=== PATIENT | female | born 1990 | race Caucasian/White ===

== ENCOUNTER 2017-02-10 21:19 | Emergency (ER) | payer OTHER ==
[~2017-02-10] VITALS: Ht 172.7 cm; Wt 99.8 kg
--- NOTE | 2017-02-10 22:30 | ED General ---
General Chief Complaint: Cough/Cold/Flu Symptoms Stated Complaint: WEAKNESS,DIZZINESS Nursing Triage Note: PT AMBULATORY TO ROOM, STATES SHE HAS BEEN SICK WITH COUGH ADN SORE THROAT SINCE AND HAS BEEN SEEN IN [place] X4. WAS IN CLASS TONIGHT AND GOT DIZZY, DECIDED TO COME TO ED INSTEAD OF DRIVING HOME TO [place]. Nursing Sepsis Screen: No Definite Risk Source of Information: Patient History of Present Illness Time Seen by Provider: 21:55 Initial Comments PT ARRIVES VIA POV PT STATES SHE HAS BEEN SICK SINCE MID , WITH MULTITUDE OF COMPLAINTS STATES SYMPTOMS ARE DIFFERENT ALL THE TIME PT STATES SHE HAS BEEN SICK NEARLY EVERY DAY, WITH VERY FEW DAYS WHEN SHE IS NOT SICK HAS HAD FEVER 100-102+ OFF AND ON= WAS 100.6 YESTERDAY HAS HAD NASAL CONGESTION AND COLORED DRAINAGE--WAS BETTER A FEW DAYS LAST WEEK, THEN RETURNED AGAIN YESTERDAY HAS HAD A NON-PRODUCTIVE COUGH OFF AND ON, HAD SLIGHT SHORTNESS OF BREATH YESTERDAY C/O NAUSEA, AND NO APPETITE C/O NO ENERGY C/O SORE THROAT OFF AND ON LAST WEEK HER HANDS WERE SWOLLEN C/O URINARY FREQUENCY, NO BURNING ON URINATION PT WORKS A SCHOOL COUNSELOR, PLUS WORKS NIGHTS AND WEEKENDS AT [employer] PT LIVES IN [place], BUT IS TAKING CLASSES HERE IN [place], AND WAS SITTING IN CLASS TONIGHT AND BEGAN FEELING VERY DIZZY AND FELT LIKE SHE WAS GOING TO PASS OUT, SO SHE DROVE HERSELF TO ER, BECAUSE SHE WAS AFRAID TO DRIVE HOME TO [place]. PT STATES SHE HAS BEEN SEEN AT LEAST 3 TIMES AT THE NOW CLINIC IN [place] FOR THESE COMPLAINTS--HAD STREP TEST DONE A FEW WEEKS AGO AND WAS NEGATIVE. NO OTHER TESTS HAVE BEEN DONE. WAS LAST SEEN THERE 01/31/17 AND WAS GIVEN A SHOT OF STEROIDS AND GIVEN RX FOR UNKNOWN ANTIBIOTIC AND AN UNKNOWN COUGH MEDICATION. OTHERWISE HAS NOT BEEN PRESCRIBED ANY MEDICATION. OCCASIONALLY SHE HAS TAKEN OTC VITAMIN C AND CLARITIN WITHOUT SIGNIFICANT IMPROVEMENT PCP: [facility] IN [place], BUT NEVER GOES THERE EXCEPT ONCE A YEAR FOR ANNUAL EXAM. AND HAS NOT ATTEMPTED TO SEE HIM AT ANY TIME FOR THESE SYMPTOMS. PCP: DR. FAJARDO, JANNY Allergies and Home Medications Allergies Coded Allergies: oxycodone (Verified Allergy, Mild, 02/10/17) Home Medications Amoxicillin/Potassium Clav 1 Each Tablet, 1 EACH PO BID, #40 Prescribed by: TANVIR VIDES on 02/10/172327 Loratadine/Pseudoephedrine 1 Each Tab.er.12h, 1 EACH PO BID, #30 Prescribed by: TANVIR VIDES on 02/10/172327 Methylprednisolone 4 Mg Tab.ds.pk, 4 MG PO UD, #1 Prescribed by: TANVIR VIDES on 02/10/172327 Mometasone Furoate 17 Gm Naspr, 2 SPRAYS NSEACH BID, #1 Prescribed by: TANVIR VIDES on 02/10/172327 Constitutional: see HPI, dizziness, fever, malaise, weakness EENTM: see HPI, nose congestion, throat pain Respiratory: see HPI, cough, short of breath Cardiovascular: see HPI, No chest pain, edema, No palpitations, No syncope, No vascular heart diseas Gastrointestinal: see HPI, No abdominal pain, No diarrhea, loss of appetite, nausea, No vomiting Genitourinary: see HPI, No dysuria, frequency, No hematuria, No incontinence, No nocturia, No pain : No LMP: Jan 25, 2017 Musculoskeletal: see HPI, other (HAND SWELLING) Skin: no symptoms reported, No rash Psychiatric/Neurological: No Symptoms Reported, Denies Headache, Denies Numbness, Denies Paresthesia, Denies Seizure, Denies Tingling, Denies Tremors, Denies Weakness Hematologic/Lymphatic: No Symptoms Reported Immunological/Allergic: no symptoms reported Past Zcryobw-Vmfkaz-Yxtmpp Hx Patient Social History Alcohol Use: Denies Use Recreational Drug Use: No Smoking Status: Never a Smoker Recent Foreign Travel: No Contact w/Someone Who Travel: No Recent Infectious Disease Expo: No Physical Abuse: No Sexual Abuse: No Surgeries History of Surgeries: No Respiratory History of Respiratory Disorde: No Cardiovascular History of Cardiac Disorders: No Neurological History of Neurological Disord: No Reproductive System : No Female Reproductive Disorders: Denies Genitourinary History of Genitourinary Disor: No Gastrointestinal History of Gastrointestinal Di: No Musculoskeletal History of Musculoskeletal Dis: No Endocrine History of Endocrine Disorders: No HEENT History of HEENT Disorders: No Cancer History of Cancer: No Psychosocial History of Psychiatric Problem: No Suicide Risk Score: 0 Integumentary History of Skin or Integumenta: No Blood Transfusions History of Blood Disorders: No Physical Exam Vital Signs Vital Sign - Last 12Hours 02/10/17 21:48 Temp 98.7 Pulse 114 Resp 17 B/P (MAP) 134/ Pulse Ox 100 O2 Delivery Room Air Capillary Refill : Less Than 3 Seconds General Appearance: No Apparent Distress, Obese, Other (FLAT AFFECT) HEENT: PERRL/EOMI, TMs Normal, Other (NASAL MUCOSAL EDEMA, LARGE AMOUNT OF COLORED NASAL DRAINAGE, MILD MAX SINUS TENDERNESS. MILD PHARYNGEAL ERYTHEMA. NO EXUDATE OR TONSILLAR SWELLING) Neck: Full Range of Motion, Normal Inspection, Non Tender, Supple, No Lymphadenopathy (L), No Lymphadenopathy (R) Respiratory: Normal Breath Sounds, No Accessory Muscle Use, No Respiratory Distress Cardiovascular: Regular Rate, Rhythm, No Edema, No JVD, No Murmur, Normal Peripheral Pulses Gastrointestinal: Normal Bowel Sounds, No Organomegaly, No Pulsatile Mass, Non Tender, Soft Back: Normal Inspection, No CVA Tenderness Extremity: Normal Capillary Refill, Normal Inspection, Normal Range of Motion, Non Tender, No Calf Tenderness, No Pedal Edema Neurologic/Psychiatric: Alert, Oriented x3, No Motor/Sensory Deficits, 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 Norm as Tested Skin: Normal Color, Warm/Dry, No Rash Focused Exam Evaluation Lactate Level Laboratory Tests 02/10/17 22:19: Lactic Acid Level 0.84 Lactic Acid Level Progress/Results/Core Measures Results/Orders Lab Results Laboratory Tests Test 02/10/17 22:10 02/10/17 22:15 02/10/17 22:19 Range/Units Urine Color YELLOW Urine Clarity CLEAR Urine pH 6.5 5-9 Urine Specific [place] 1.010 L 1.016-1.022 Urine Protein NEGATIVE NEGATIVE Urine Glucose (UA) NEGATIVE NEGATIVE Urine Ketones NEGATIVE NEGATIVE Urine Nitrite NEGATIVE NEGATIVE Urine Bilirubin NEGATIVE NEGATIVE Urine Urobilinogen NORMAL NORMAL MG/DL Urine Leukocyte Esterase NEGATIVE NEGATIVE Urine RBC (Auto) 1+ H NEGATIVE Urine RBC 0-2 /HPF Urine WBC NONE /HPF Urine Squamous Epithelial Cells RARE /HPF Urine Crystals NONE /LPF Urine Bacteria NONE /HPF Urine Casts NONE /LPF Urine Mucus NEGATIVE /LPF Urine Culture Indicated NO Group A Streptococcus Screen NEGATIVE NEGATIVE White Blood Count 12.5 H 4.3-11.0 10^3/uL Red Blood Count 5.06 4.35-5.85 10^6/uL Hemoglobin 14.1 11.5-16.0 G/DL Hematocrit 41 35-52 % Mean Corpuscular Volume 81 80-99 FL Mean Corpuscular Hemoglobin 28 25-34 PG Mean Corpuscular Hemoglobin Concent 35 32-36 G/DL Red Cell Distribution Width 13.9 10.0-14.5 % Platelet Count 398 130-400 10^3/uL Mean Platelet Volume 9.4 7.4-10.4 FL Neutrophils (%) (Auto) 64 42-75 % Lymphocytes (%) (Auto) 22 12-44 % Monocytes (%) (Auto) 12 0-12 % Eosinophils (%) (Auto) 2 0-10 % Basophils (%) (Auto) 1 0-10 % Neutrophils # (Auto) 8.0 H 1.8-7.8 X 10^3 Lymphocytes # (Auto) 2.7 1.0-4.0 X 10^3 Monocytes # (Auto) 1.5 H 0.0-1.0 X 10^3 Eosinophils # (Auto) 0.2 0.0-0.3 10^3/uL Basophils # (Auto) 0.1 0.0-0.1 10^3/uL Sodium Level 137 135-145 MMOL/L Potassium Level 3.6 3.6-5.0 MMOL/L Chloride Level 105 98-107 MMOL/L Carbon Dioxide Level 22 21-32 MMOL/L Anion Gap 10 5-14 MMOL/L Blood Urea Nitrogen 9 7-18 MG/DL Creatinine 0.82 0.60-1.30 MG/DL Estimat Glomerular Filtration Rate > 60 BUN/Creatinine Ratio 11 Glucose Level 94 70-105 MG/DL Lactic Acid Level 0.84 0.50-2.00 MMOL/L Calcium Level 11.0 H 8.5-10.1 MG/DL Total Bilirubin 0.3 0.1-1.0 MG/DL Aspartate Amino Transf (AST/SGOT) 15 5-34 U/L Alanine Aminotransferase (ALT/SGPT) 18 0-55 U/L Alkaline Phosphatase 76 40-136 U/L Total Protein 8.7 H 6.4-8.2 GM/DL Albumin 4.4 3.2-4.5 GM/DL Monoscreen NEGATIVE NEGATIVE Micro Results Microbiology 02/10/17 Influenza Types A,B Antigen (ZAKIA) - Final, Resulted 02/10/17 Respiratory Syncytial Virus Ag, Resulted Pending My Orders Orders - MAHOGANY,TANVIR K DO Saline Lock/Iv-Start (02/10/17 22:08) Urine Bedside (02/10/17 22:08) Cbc With Automated Diff (02/10/17 22:08) Comprehensive Metabolic Panel (02/10/17 22:08) Lactic Acid Analyzer (02/10/17 22:08) Monotest (02/10/17 22:08) Rapid Strep A Screen (02/10/17 22:08) Ua Culture If Indicated (02/10/17 22:08) Blood Culture (02/10/17 22:08) Influenza A And B Antigens (02/10/17 22:08) Rsv Antigen (02/10/17 22:08) Chest Pa/Lat (2 View) (02/10/17 22:08) Ct Head Wo (02/10/17 22:08) Ceftriaxone Injection (Rocephin Injectio (02/10/17 23:30) Medications Given in ED Current Medications Medications Dose Ordered Sig/Marquita Route Start Time Stop Time Status Last Admin Dose Admin Ceftriaxone Sodium 1000 mg/ Sodium Chloride 50 ml @ 100 mls/hr ONCE ONCE IV 02/10/17 23:30 02/10/17 23:59 DC 02/10/17 23:34 100 MLS/HR Vital Signs/I&O Vital Sign - Last 12Hours 02/10/17 02/10/17 02/11/17 21:48 23:45 00:09 Temp 98.7 98.5 98.5 Pulse 114 99 87 Resp B/P (MAP) 134/ 139/97 Pulse Ox 100 98 100 O2 Delivery Room Air Diagnostic Imaging Comments CT HEAD--NO ACUTE PROCESS, PER [facility] VIA FAX @ 4107 Reviewed: Reviewed by Me Departure Impression Impression: Primary Impression: Upper respiratory infection Disposition: HOME, SELF-CARE Condition: Stable Departure-Patient Inst. Referrals: NO,LOCAL PHYSICIAN (PCP) Primary Care Physician Patient Instructions: Sinusitis, Adult (DC) Add. Discharge Instructions: LOTS OF CLEAR LIQUIDS TYLENOL AND MOTRIN NEEDED FOR PAIN OR FEVER FOLLOW UP WITH DR. FAJARDO IN 7-10 DAYS FOR FURTHER CARE All discharge instructions reviewed with patient and/or family. Voiced understanding. Scripts Mometasone Furoate (Nasonex) 17 Gm Naspr 2 SPRAYS NSEACH BID for SINUSES, #1 EA Prov: TANVIR VIDES DO 02/10/17 Methylprednisolone (Medrol) 4 Mg Tab.ds.pk 4 MG PO UD, #1 PKG Prov: TANVIR VIDES DO 02/10/17 Loratadine/Pseudoephedrine (Claritin-D 12 Hour Tablet) 1 Each Tab.er.12h 1 EACH PO BID for Congestion, #30 TAB Prov: TANVIR VIDES DO 02/10/17 Amoxicillin/Potassium Clav (Augmentin 875-125 Tablet) 1 Each Tablet 1 EACH PO BID for INFECTION, #40 TAB Prov: TANVIR VIDES DO 02/10/17 TANVIR VIDES DO Feb 10, 2017 22:30
[2017-02-10 22:32] LABS: BASOPHILS # (AUTO) 0.1 10^3/uL (0.0-0.1); BASOPHILS % (AUTO) 1 % (0-10); EOSINOPHILS # (AUTO) 0.2 10^3/uL (0.0-0.3); EOSINOPHILS % (AUTO) 2 % (0-10); LYMPHOCYTES # (AUTO) 2.7 X 10^3 (1.0-4.0); LYMPHOCYTES % (AUTO) 22 % (12-44); MEAN CORPUSCULAR HEMOGLOBIN 28 PG (25-34); MEAN CORPUSCULAR HGB CONC 35 G/DL (32-36); MEAN CORPUSCULAR VOLUME 81 FL (80-99); MEAN PLATELET VOLUME 9.4 FL (7.4-10.4); MONOCYTES # (AUTO) 1.5 X 10^3 (0.0-1.0); MONOCYTES % (AUTO) 12 % (0-12); NEUTROPHILS % (AUTO) 64 % (42-75); PLATELET COUNT 398 10^3/uL (130-400); RED BLOOD COUNT 5.06 10^6/uL (4.35-5.85); RED CELL DISTRIBUTION WIDTH 13.9 % (10.0-14.5); WHITE BLOOD COUNT 12.5 10^3/uL (4.3-11.0)
[2017-02-10 22:39] LABS: BILIRUBIN,URINE NEGATIVE (NEGATIVE); KETONES,URINE NEGATIVE (NEGATIVE); LEUKOCYTE ESTERASE ,URINE NEGATIVE (NEGATIVE); NITRITE,URINE NEGATIVE (NEGATIVE); PH,URINE 6.5 (5-9); PROTEIN,URINE NEGATIVE (NEGATIVE); UROBILINOGEN,URINE NORMAL (NORMAL)
[2017-02-10 22:46] LABS: SQUAMOUS EPITHELIAL CELL,UR RARE /HPF
[2017-02-10 22:55] LABS: ALANINE AMINOTRANSFERASE 18 U/L (0-55); ALBUMIN 4.4 GM/DL (3.2-4.5); ANION GAP 10 MMOL/L (5-14); ASPARTATE AMINO TRANSFERASE 15 U/L (5-34); BILIRUBIN,TOTAL 0.3 MG/DL (0.1-1.0); BLOOD UREA NITROGEN 9 MG/DL (7-18); BUN/CREATININE RATIO 11; CARBON DIOXIDE 22 MMOL/L (21-32); CHLORIDE 105 MMOL/L (98-107); CREATININE SERUM 0.82 MG/DL (0.60-1.30); GFR ESTIMATED > 60; GLUCOSE 94 MG/DL (70-105); POTASSIUM 3.6 MMOL/L (3.6-5.0); SODIUM 137 MMOL/L (135-145); TOTAL PROTEIN 8.7 GM/DL (6.4-8.2)
[2017-02-10] MEDS ORDERED: MMT17NA NSEACH (23:28)
[2017-02-10] MEDS ORDERED: AMOX-358 PO (23:28)
[2017-02-10] MEDS ORDERED: METH4TAB PO (23:28)
[2017-02-10] MEDS ORDERED: LORA1TAB59 PO (23:28)
[2017-02-10] MEDS ORDERED: cefTRIAXone INJECTION 1,000 MG in NS (IVPB) 50 ML IV ONE (23:30)
[2017-02-11 00:09] VITALS: BP 123/84
--- NOTE | 2017-02-11 06:08 | Diagnostic Imaging Report ---
EXAM: CHEST PA/LAT (2 VIEW) INDICATION: Cough. Dizziness. COMPARISON: None. FINDINGS: Normal heart size and pulmonary vascularity. No focal pulmonary opacity, pleural effusion or pneumothorax. No acute osseous findings. IMPRESSION: No acute cardiopulmonary findings. Dictated by: Dictated on workstation # [id number]
--- NOTE | 2017-02-11 06:08 | Diagnostic Imaging Report ---
PROCEDURE: CT head without contrast. TECHNIQUE: Multiple contiguous axial images were obtained through the brain without the use of intravenous contrast. INDICATION: Dizziness. COMPARISON: None. FINDINGS: No intracranial hemorrhage, mass effect, hydrocephalus or extra-axial fluid collections. No CT evidence of acute infarction. Osseous structures are intact. The paranasal sinuses and mastoids are clear. IMPRESSION: No acute intracranial CT findings. Dictated by: Dictated on workstation # [id number]
== END 2017-02-11 00:09 | disposition home or self-care (01) ==
LOC: ER 21:22
DX: J06.9 Acute upper respiratory infection, unspecified (principal)
CPT/HCPCS: 36415; 70450; 71020; 80053; 81000; 83605; 84703; 85025; 86308; 87040; 87420; 87430; 87804

== ENCOUNTER 2019-09-20 12:32 | Emergency (ER) | payer BC, OTHER ==
[~2019-09-20] VITALS: Ht 175.3 cm; Wt 99.8 kg
[~2019-09-20 12:32] MED LIST: AMOX-358 PO; LORA1TAB59 PO; METH4TAB PO; MMT17NA NSEACH
--- NOTE | 2019-09-20 12:47 | ED Upper Extremity ---
General Stated Complaint: LEFT ARM INJ Source: patient Exam Limitations: no limitations History of Present Illness Date Seen by Provider: Sep 20, 2019 Time Seen by Provider: 12:45 Initial Comments To ER with pain to the ulnar side mid forearm on the left after striking this area on the corner of a step and fell at home just prior to arrival Onset: just prior to arrival Severity: moderate Pain/Injury Location: left forearm Method of Injury: fell Modifying Factors: Worse With Movement Allergies and Home Medications Allergies Coded Allergies: oxycodone (Verified Allergy, Mild, 02/10/17) Home Medications Amoxicillin/Potassium Clav 1 Each Tablet, 1 EACH PO BID Prescribed by: TANVIR VIDES on 02/10/172327 Loratadine/Pseudoephedrine 1 Each Tab.er.12h, 1 EACH PO BID Prescribed by: TANVIR VIDES on 02/10/172327 Methylprednisolone 4 Mg Tab.ds.pk, 4 MG PO UD Prescribed by: TANVIR VIDES on 02/10/172327 Mometasone Furoate 17 Gm Naspr, 2 SPRAYS NSEACH BID Prescribed by: TANVIR VIDES on 02/10/172327 Patient Home Medication List Home Medication List Reviewed: Yes Review of Systems Constitutional: see HPI EENTM: see HPI Respiratory: no symptoms reported Cardiovascular: no symptoms reported Genitourinary: no symptoms reported Musculoskeletal: see HPI Skin: no symptoms reported Psychiatric/Neurological: No Symptoms Reported Past Wsyeudh-Esgtik-Uzdotb Hx Patient Social History Recent Foreign Travel: No Contact w/Someone Who Travel: No Past Medical History Surgeries: No Respiratory: No Cardiac: No Neurological: No Female Reproductive Disorders: Denies Genitourinary: No Gastrointestinal: No Musculoskeletal: No Endocrine: No HEENT: No Cancer: No Psychosocial: No Integumentary: No Blood Disorders: No Physical Exam Vital Signs Vital Signs - First Documented 09/20/19 12:52 Temp 36.9 Pulse 80 Resp 20 B/P (MAP) 141/97 (112) O2 Delivery Room Air Capillary Refill : Height, Weight, BMI Height: 5'8.00" Weight: 220lbs. oz. 99.562326xr; BMI Method:Stated General Appearance: WD/WN, no apparent distress HEENT: PERRL/EOMI, normal ENT inspection Respiratory: no respiratory distress, no accessory muscle use Shoulder: normal inspection, non-tender Elbow/Forearm: Left, abrasions (ulnar side midforearm) Wrist: Yes normal inspection, Yes non-tender Hand: normal inspection, non-tender Neurologic/Psychiatric: alert, normal mood/affect, oriented x 3 Skin: normal color, warm/dry Progress/Results/Core Measures Results/Orders My Orders Orders - SOPHIE SUMNER APRN Forearm, Left, 2 Views (09/20/19 12:44) Vital Signs/I&O 09/20/19 12:52 Temp 36.9 Pulse 80 Resp 20 B/P (MAP) 141/97 (112) O2 Delivery Room Air Departure Impression Primary Impression: Contusion of forearm, left Disposition: HOME, SELF-CARE Condition: Stable Departure-Patient Inst. Decision time for Depature: 13:04 Referrals: NO,LOCAL PHYSICIAN (PCP/Family) Primary Care Physician Patient Instructions: Contusion (DC) Add. Discharge Instructions: 1. Ice pack to the area. Tylenol and ibuprofen for pain control 2. Follow-up with your doctor next week 3. Images Extremities-Upper 1 - Abrasion, Tenderness SOPHIE SUMNRE APRN Sep 20, 2019 12:47
[2019-09-20 12:52] VITALS: BP 141/97
--- NOTE | 2019-09-20 13:09 | Diagnostic Imaging Report ---
INDICATION: Fall with left forearm injury and pain. TIME OF EXAM: 10:02 PM 2 views of left forearm demonstrate normal alignment at the elbow and wrist. The radius and ulna appear to be intact. No fractures are seen. Soft tissues are unremarkable. IMPRESSION: No acute abnormality is detected. Dictated by: Dictated on workstation # [id number]
--- OUTSIDE RECORDS SUMMARY | 2019-09-20 13:47 | XMS REPORT | Continuity of Care Document ---
Author Organization Unknown Address Unknown Phone Unavailable Allergies Active Description Code Type Severity Reaction Onset Reported/Identified Relationship to Patient Clinical Status Yes oxycodone [id number] Drug Allergy Mild N/A 02/10/2017 Medications There is no data. Problems Date Dx Coded Attending Type Code Diagnosis Diagnosed By 02/11/2017 TANVIR VIDES DO Ot J02.9 ACUTE PHARYNGITIS, UNSPECIFIED 02/11/2017 TANVIR VIDES DO Ot J06.9 ACUTE UPPER RESPIRATORY INFECTION, UNSPE Procedures There is no data. Results Test Result Range Complete urinalysis with reflex to cultu re - 02/10/17 22:10 Urine color determination YELLOW NRG Urine clarity determination CLEAR NR G Urine pH measurement by test strip 6.5 5-9 Specific gravity of urine by test strip 1.010 1.016-1.022 Urine protein assay by test strip, semi-quantitative NEGATIVE NEGATIVE Urine glucose detection by automated test strip NE GATIVE NEGATIVE Erythrocytes detection in urine sediment by light micr oscopy 1+ NEGATIVE Urine ketones detection by automated test strip NE GATIVE NEGATIVE Urine nitrite detection by test strip NEGATIVE NEGATIVE Urine total bilirubin detection by test strip NEGA TIVE NEGATIVE Urine urobilinogen measurement by automated test strip (mass/volume) NORMAL NORMAL Urine leukocyte esterase detection by dipstick NEG ATIVE NEGATIVE Automated urine sediment erythrocyte cou nt by microscopy (number/high power field) [HPF] NRG Automated urine sediment leukocyte count by microscopy (number/high power field) NONE NRG Bacteria detection in urine sediment by light microsco py NONE NRG Squamous epithelial cells detection in u rine sediment by light microscopy RARE NRG Crystals detection in urine sediment by light microsco py NONE NRG Casts detection in urine sediment by light microscopy NONE NRG Mucus detection in urine sediment by light microscopy NEGATIVE NRG Complete urinalysis with reflex to culture NO NRG Streptococcus pyogenes antigen detection - 02/10/17 22:15 Streptococcus pyogenes antigen detection NEGATIVE NEGATIVE Influenza virus A and B antigen detectio n - 02/10/17 22:15 FLU RESULT NEGATIVE FOR INFLUENZA A AND B ANTIGENS BY [facility] Bacterial throat culture - 02/10/17 22:1 5 Complete blood count (CBC) with automate d white blood cell (WBC) differential - 02/10/17 22:19 Blood leukocytes automated count (number/volume) 12.5 10*3/uL 4.3-11.0 Blood erythrocytes automated count (number/volume) 5.06 10*6/uL 4.35-5.85 Venous blood hemoglobin measurement (mass/volume) 14.1 g/dL 11.5-16.0 Blood hematocrit (volume fraction) 41 % 35-52 Automated erythrocyte mean corpuscular volume 81 [ foz_us] 80-99 Automated erythrocyte mean corpuscular h emoglobin (mass per erythrocyte) 28 pg 25-34 Automated erythrocyte mean corpuscular h emoglobin concentration measurement (mass/volume) 35 g/dL 32-36 Automated erythrocyte distribution width ratio 13. 9 % 10.0- 14.5 Automated blood platelet count (count/volume) 398 10*3/uL 130-400 Automated blood platelet mean volume measurement 9.4 [foz_us] 7.4-10.4 Automated blood neutrophils/100 leukocytes 64 % 42-75 Automated blood lymphocytes/100 leukocytes 22 % 12-44 Blood monocytes/100 leukocytes 12 % 0-12 Automated blood eosinophils/100 leukocytes 2 % 0-10 Automated blood basophils/100 leukocytes 1 % 0-10 Blood neutrophils automated count (number/volume) 8.0 10*3 1.8-7.8 Blood lymphocytes automated count (number/volume) 2.7 10*3 1.0-4.0 Blood monocytes automated count (number/volume) 1. 5 10*3 0.0-1.0 Automated eosinophil count 0.2 10*3/uL 0 .0-0.3 Automated blood basophil count (count/volume) 0.1 10*3/uL 0.0-0.1 Serum heterophile antibody titer - 02/10 22:19 Serum heterophile antibody titer NEGATIVE NEGATIVE Blood lactic acid measurement (moles/vol ume) - 02/10/17 22:19 Blood lactic acid measurement (moles/volume) 0.84 mmol/L 0.50-2.00 Comprehensive metabolic panel - 02/10/17 22:19 Serum or plasma sodium measurement (moles/volume) 137 mmol/L 135-145 Serum or plasma potassium measurement (moles/volume) 3.6 mmol/L 3.6-5.0 Serum or plasma chloride measurement (moles/volume) 105 mmol/L 98-107 Carbon dioxide 22 mmol/L 21-32 Serum or plasma anion gap determination (moles/volume) 10 mmol/L 5-14 Serum or plasma urea nitrogen measurement (mass/volume ) 9 mg/dL 7-18 Serum or plasma creatinine measurement (mass/volume) 0.82 mg/dL 0.60-1.30 Serum or plasma urea nitrogen/creatinine mass ratio 11 NRG Serum or plasma creatinine measurement w ith calculation of estimated glomerular filtration rate > NRG Serum or plasma glucose measurement (mass/volume) 94 mg/dL 70-105 Serum or plasma calcium measurement (mass/volume) 11.0 mg/dL 8.5-10.1 Serum or plasma total bilirubin measurement (mass/volu me) 0.3 mg/dL 0.1-1.0 Serum or plasma alkaline phosphatase agustina surement (enzymatic activity/volume) 76 U/L 40-136 Serum or plasma aspartate aminotransfera se measurement (enzymatic activity/volume) 15 U/L 5-34 Serum or plasma alanine aminotransferase measurement (enzymatic activity/volume) 18 U/L 0-55 Serum or plasma protein measurement (mass/volume) 8.7 g/dL 6.4-8.2 Serum or plasma albumin measurement (mass/volume) 4.4 g/dL 3.2-4.5 Bacterial blood culture - 02/10/17 22:19 Bacterial blood culture NG NRG Bacterial blood culture - 02/10/17 23:40 Bacterial blood culture NG NRG Encounters ACCT No. Visit Date/Time Discharge Status Pt. Type Provider Facility Loc./Unit Complaint [id number] 09/20/2019 12:33:00 020 13:08:00 DIS Emergency SOPHIE SUMNER APRN [facility] LEFT ARM INJ [id number] 02/10/2017 21:22:00 017 00:09:00 DIS Emergency TANVIR VIDES DO [facility] WEAKNESS,DIZZINESS
== END 2019-09-20 13:08 | disposition home or self-care (01) ==
LOC: EDUNIT# 12:32 → ER 12:33
DX: S50.12XA Contusion of left forearm, initial encounter (principal); Z88.5 Allergy status to narcotic agent; W01.198A Fall on same level from slipping, tripping and stumbling with subsequent striking against other object, initial encounter; Y92.009 Unspecified place in unspecified non-institutional (private) residence as the place of occurrence of the external cause
CPT/HCPCS: 73090